=== PATIENT | female | born 2005 | race Caucasian/White ===

== ENCOUNTER 2023-05-10 11:12 | Outpatient (CLI) | payer BC, SELFPAY ==
[2023-05-10 16:01] LABS: Chlamydia DNA Amplified* NOT DETECTED (No Detected); GC DNA Amplified* NOT DETECTED (No Detected)
[2023-05-12 19:18] LABS: HSV 1 Subtype by PCR Not Detected; HSV 2 Subtype by PCR Not Detected
== END 2023-05-10 11:13 | disposition home or self-care (01) ==
PROVIDERS: Visit Provider Registered Nurse
DX: Z11.3 Encounter for screening for infections with a predominantly sexual mode of transmission (principal); N89.8 Other specified noninflammatory disorders of vagina; R21 Rash and other nonspecific skin eruption; L73.9 Follicular disorder, unspecified
CPT/HCPCS: 87491; 87529; 87591

== ENCOUNTER 2025-02-20 13:29 | Outpatient (CLI) | payer BC, SELFPAY ==
[2025-02-20 13:50] LABS: Hemoglobin* 13.4 gm/dL (12.0-16.0)
== END 2025-02-20 13:30 | disposition home or self-care (01) ==
PROVIDERS: Visit Provider Family Medicine
DX: R53.83 Other fatigue (principal)
CPT/HCPCS: 36415; 82728; 85018